=== PATIENT | male | born 2000 | race African-American/Black ===

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

== ENCOUNTER 2020-08-30 09:18 | Inpatient (IN) | payer OTHER ==
[2020-08-30] MEDS ORDERED: ONDANSETRON 4 MG/2 ML VIAL IVPUSH ONE ×2 (09:45→10:45)
[2020-08-30] MEDS ORDERED: ACETAMINOPHEN INJECTION 100 ML IVPB ONE (09:45)
[2020-08-30] MEDS ORDERED: ACETAMINOPHEN 1000 MG/100 ML VIAL (NON FORMULARY) IVPB ONE (09:45)
[2020-08-30] MEDS ORDERED: LACTATED RINGERS SOLUTION 1000 ML INFUS.BAG IV ONE ×2 (09:45→10:45)
[2020-08-30] MEDS ORDERED: ONDANSETRON 4 MG/2 ML VIAL ONE ×2 (09:45→10:46)
[2020-08-30 09:56] LABS: BASO % 0.9 % (0-2.0); EOS % 3.2 % (0-4.5); HEMATOCRIT 43.3 % (35.4-49); HEMOGLOBIN 14.6 GM/dl (11.7-16.9); LYMPH % 18.6 % (8-40); MCH 28.5 pg (25.7-33.7); MCHC 33.6 g/dl (32.0-35.9); MEAN CELL VOLUME 84.9 fl (80-96); MEAN PLT VOLUME 8.3 fl (7.5-11.1); MONO % 9.3 % (3.8-10.2); PLATELET COUNT 268 K/MM3 (134-434); RDW 12.5 % (11.9-15.9); WHITE BLOOD COUNT 9.2 K/mm3 (4.0-10.8)
[2020-08-30 10:12] LABS: ALBUMIN 4.3 g/dl (3.4-5.0); BILIRUBIN,TOTAL 0.4 mg/dl (0.2-1); CALCIUM 8.9 mg/dl (8.5-10); CREATININE 0.8 mg/dl (0.55-1.3); TOT PROT 7.4 g/dl (6.4-8.2)
[2020-08-30] MEDS ORDERED: morphine CARPU-JECT 4 MG/1 ML DISP.SYRIN IVPUSH ONE (10:44)
[2020-08-30] MEDS ORDERED: morphine SULFATE 4 MG/ML VIAL ONE (10:46)
[2020-08-30] MEDS ORDERED: CEFTRIAXONE 2,000 MG in DEXTROSE 5%-WATER - 50 ML IVPB ONE (12:07)
[2020-08-30] MEDS ORDERED: LACTATED RINGERS SOLUTION 1,000 ML/1,000 ML INFUS.BAG IV SCH ×2 (12:15→18:16)
[2020-08-30 13:04] LABS: ACTIVATED PTT 25.4 SECONDS (25.2-36.5)
[2020-08-30 13:08] LABS: INR 1.13 (0.82-1.09); PROTHROMBIN TIME (PATIENT) 12.6 SEC (10.2-13.0)
[2020-08-30] MEDS ORDERED: BUPIVACAINE HCL 100 ML ONE (13:28)
[2020-08-30] MEDS ORDERED: fentaNYL CITRATE 250 MCG/5 ML VIAL ONE (14:58)
[2020-08-30] MEDS ORDERED: GLYCOPYRROLATE 0.2 MG/1 ML VIAL ONE (14:58)
[2020-08-30] MEDS ORDERED: ROCURONIUM BROMIDE 50 MG/5 ML SYRINGE ONE (14:59)
[2020-08-30] MEDS ORDERED: NEOSTIGMINE METHYLSULFATE 0.5 MG/ML - 10 ML MDV ONE (14:59)
[2020-08-30] MEDS ORDERED: MIDAZOLAM HCL 2 MG/2 ML SINGLE DOSE VIAL ONE ×3 (14:59→17:48)
[2020-08-30] MEDS ORDERED: LIDOCAINE HCL 2% JELLY (5 ML/TUBE) ONE (15:00)
[2020-08-30] MEDS ORDERED: PROPOFOL 20 ML ONE ×2 (16:39)
[2020-08-30] MEDS ORDERED: oxyCODONE HCL 5 MG TABLET PO PRN ×3 (17:05→18:45)
[2020-08-30] MEDS ORDERED: ONDANSETRON 4 MG/2 ML VIAL IVPUSH PRN (17:05)
[2020-08-30] MEDS ORDERED: LACTATED RINGERS SOLUTION 1,000 ML IV SCH (17:15)
[2020-08-30] MEDS ORDERED: BUPIVACAINE HCL/PF 0.5% (5 MG/ML) 30 ML VIAL IJ ONE (17:23)
[2020-08-30 22:13] VITALS: BMI 42.8
[2020-08-30] MEDS ORDERED: ACETAMINOPHEN 500 MG TABLET (FP) PO PRN (23:35)
[2020-08-31 07:45] LABS: BASO % 0.3 % (0-2.0); EOS % 1.6 % (0-4.5); HEMATOCRIT 38.7 % (35.4-49); HEMOGLOBIN 13.5 GM/dL (11.7-16.9); LYMPH % 20.3 % (8-40); MCH 29.4 pg (25.7-33.7); MCHC 34.8 g/dl (32.0-35.9); MEAN CELL VOLUME 84.4 fl (80-96); MEAN PLT VOLUME 8.5 fl (7.5-11.1); MONO % 10.9 % (3.8-10.2); NEUT % 66.9 % (42.8-82.8); PLATELET COUNT 259 K/MM3 (134-434); RBC 4.58 M/mm3 (4.00-5.60); RDW 13.5 % (11.9-15.9); WHITE BLOOD COUNT 8.6 K/mm3 (4.0-10.0)
[2020-08-31 08:05] LABS: CALCIUM 8.3 mg/dL (8.5-10.1)
[2020-08-31 08:06] LABS: ALBUMIN 3.4 g/dl (3.4-5.0); BLOOD UREA NITROGEN 7.7 mg/dL (7-18); MAGNESIUM 1.9 mg/dL (1.8-2.4)
[2020-08-31 08:09] LABS: CREATININE 0.8 mg/dL (0.55-1.3)
[2020-08-31 08:10] LABS: BILIRUBIN,TOTAL 0.7 mg/dL (0.2-1)
[2020-08-31 08:11] LABS: TOT PROT 6.6 g/dl (6.4-8.2)
[2020-08-31 12:21] VITALS: BP 138/81; PULSE 67; TEMP 98.2
== END 2020-08-31 15:31 | disposition home or self-care (01) | DRG 225 ==
LOC: FER 09:18 → SUPCPDRO 09:18 → J2C 12:48 → UNDOADMIN 16:39 → J2C 16:39 → J8W 19:49
PROVIDERS: ADMIT Internal Medicine; ATTEND Internal Medicine
PROC: 0DTJ4ZZ Resection of Appendix, Percutaneous Endoscopic Approach (ICD-10-PCS; principal; 2020-08-30 14:00)
DX: K35.80 Unspecified acute appendicitis (principal); E66.01 Morbid (severe) obesity due to excess calories; Z68.41 Body mass index [BMI] 40.0-44.9, adult; Z86.16 Personal history of COVID-19; U07.1 COVID-19
CPT/HCPCS: 36415; 74177-TC; 80053; 81003; 83036; 83690; 83735; 85025; 85610; 85730; 86850; 86900; 86901; 87086; 88304-TC; 94760; 99285-25; C9803; J0131; U0003; U0005

== ENCOUNTER 2024-05-17 14:42 | Emergency (ER) | payer OTHER ==
[2024-05-17 15:03] VITALS: BP 151/98; PULSE 74; RESP 20; TEMP 98; BMI 43.6
[2024-05-17] MEDS ORDERED: DIPHTH,PERTUSS(ACELL),TET 0.5 ML DISP.SYRIN IM ONE (15:11)
[2024-05-17] MEDS: DIPHTH,PERTUSS(ACELL),TET 0.5 ML DISP.SYRIN IM ONE (15:14)
== END 2024-05-17 15:27 | disposition home or self-care (01) ==
LOC: JERFT 14:42
DX: Z48.02 Encounter for removal of sutures (principal)
CPT/HCPCS: 90715; 99281-25